=== PATIENT | female | born 1965 | race Caucasian/White ===

== ENCOUNTER 2017-01-09 11:05 | Inpatient (IN) | payer OTHER ==
[2017-01-08 12:49] VITALS: BMI 24.3
--- NOTE | 2017-01-09 08:05 | HP ---
History & Physical Update - History History: No Change - Physical Physical: No Change - Assessment Assessment: No Change - Plan Plan: No Change (This is my first time meeting the patient. Introduced myself and informed patient that I will be assisting Dr. Au throughout the entire procedure. Pre-op: c/o low back pian radiating down RLE to foot)
[~2017-01-09 11:05] MED LIST: ONDANSETRON 4 MG/2 ML VIAL IVPUSH PRN
[2017-01-09] MEDS ORDERED: oxyCODONE HCL 10 MG SUSTAINED ACTING TABLET PO STA (11:28)
[2017-01-09] MEDS ORDERED: LIDOCAINE HCL/PF 2% SDV 5ML VIAL ONE (13:16)
[2017-01-09] MEDS ORDERED: MIDAZOLAM HCL 2 MG/2 ML SINGLE DOSE VIAL ONE (13:16)
[2017-01-09] MEDS ORDERED: PROPOFOL 20 ML ONE ×7 (13:16→16:02)
[2017-01-09] MEDS ORDERED: LIDOCAINE 1%-EPI 1:100,000 30 ML MDV IJ ONE (13:56)
[2017-01-09] MEDS ORDERED: SUCCINYLCHOLINE CHLORIDE 200 MG/10 ML VIAL ONE (14:39)
[2017-01-09] MEDS ORDERED: LIDOCAINE HCL 1%, 10 MG/ML (50 mL VIAL) IJ ONE (15:00)
[2017-01-09] MEDS ORDERED: ceFAZolin SODIUM 1 GM VIAL ONE (15:15)
[2017-01-09] MEDS ORDERED: DEXAMETHASONE SOD PHOSPHATE 4 MG/1 ML VIAL ONE (15:15)
[2017-01-09] MEDS ORDERED: ONDANSETRON 4 MG/2 ML VIAL ONE ×2 (15:15→17:37)
[2017-01-09] MEDS ORDERED: GELATIN SPONGE,ABSORBABLE 1 GM PACKET TP ONE (15:54)
[2017-01-09] MEDS ORDERED: BUPIVACAINE HCL 0.25% 125 MG/50 ML VIAL ONE (15:57)
[2017-01-09] MEDS ORDERED: ONDANSETRON 4 MG/2 ML VIAL IVPUSH PRN (16:02)
[2017-01-09] MEDS ORDERED: BUPIVACAINE HCL/PF 0.25% (2.5MG/ML) 10 ML VIAL IJ ONE (16:52)
--- NOTE | 2017-01-09 16:56 | OP ---
Operative Note - Note: Operative Date: 01/09/17 Pre-Operative Diagnosis: Spondylolithesis, lumbar radiculopathy (right leg-foot) Operation: Transforaminal lumbar interbody fusion/decompression/instrumentation L4-L5 with neuromonitoring Post-Operative Diagnosis: Same as Pre-op Surgeon: Alex Au Housing Inspectors: Tahir Schultz Anesthesiologist/AUGER OPERATOR: Judith Wynn Anesthesia: General Estimated Blood Loss (mls): 30 Fluid Volume Replaced (mls): 1,300 Operative Report Dictated: Yes
[2017-01-09] MEDS ORDERED: ONDANSETRON 4 MG/2 ML VIAL IVPB PRN (16:58)
[2017-01-09] MEDS ORDERED: oxyCODONE HCL 5 MG TABLET PO PRN (16:58)
--- NOTE | 2017-01-09 16:58 | SURG ---
Surgery Certified Nuclear Medicine Technologist Note Certified Nuclear Medicine Technologist: Tahir Schultz PA-C Date of Service: 01/09/17 Diagnosis: Spondylolithesis, lumbar radiculopathy (right leg-->foot) Procedure: CPT Codes: 33302, 24224, 33913 Transforaminal lumbar interbody fusion/decompression/instrumentation L4-L5 with neuromonitoring I was present for the entirety of the operative procedure. For further detail, please refer to operative report. Visit type - Case Type Case Type: Scheduled Admission - New patient This patient is new to me today: Yes Date on this admission: 01/09/17
[2017-01-09] MEDS ORDERED: BIMATOPROST TP SCH (17:00)
[2017-01-09] MEDS ORDERED: LACTATED RINGERS SOLUTION 1,000 ML IV SCH (17:00)
[2017-01-09] MEDS ORDERED: ACETAMINOPHEN 1000 MG/100 ML VIAL (NON FORMULARY) IVPB ONE (17:01)
[2017-01-09] MEDS ORDERED: ACETAMINOPHEN INJECTION 100 ML IVPB ONE (17:11)
[2017-01-09] MEDS ORDERED: diazePAM CARPU-JECT 10 MG/2 ML DISP.SYRIN ONE (17:15)
[2017-01-09] MEDS ORDERED: CEFAZOLIN (PRE-DOCKED) 50 ML IVPB SCH (17:30)
[2017-01-09] MEDS ORDERED: diazePAM CARPU-JECT 10 MG/2 ML DISP.SYRIN IVPUSH ONE (17:50)
[2017-01-09] MEDS: morphine CARPU-JECT 4 MG/1 ML DISP.SYRIN IVPUSH PRN (19:15)
[2017-01-09] MEDS: oxyCODONE HCL 5 MG TABLET PO PRN (22:26)
[2017-01-09] MEDS: ACETAMINOPHEN 325 MG TABLET (FP) PO PRN (23:00)
[2017-01-09] MEDS: CEFAZOLIN (PRE-DOCKED) 50 ML IVPB SCH (23:10)
[2017-01-10] MEDS: morphine CARPU-JECT 4 MG/1 ML DISP.SYRIN IVPUSH PRN (01:37)
[2017-01-10] MEDS ORDERED: CEFTRIAXONE 50 ML ONE (05:55)
[2017-01-10] MEDS: CYCLOBENZAPRINE HCL 10 MG TABLET (FP) PO PRN ×2 (06:02→13:49)
[2017-01-10] MEDS: CEFAZOLIN (PRE-DOCKED) 50 ML IVPB SCH (06:29)
[2017-01-10] MEDS: oxyCODONE HCL 5 MG TABLET PO PRN ×2 (07:31→12:21)
--- NOTE | 2017-01-10 07:49 | DS ---
[id number] walking with the nursing staff. She is voiding without difficulty. Pain mainly over her incision sites. Vital Signs Temperature 97.7 F 01/10/17 06:00 Pulse Rate 53 L 01/10/17 06:00 Respiratory Rate 18 01/10/17 06:00 Blood Pressure 103/50 01/10/17 06:00 O2 Sat by Pulse Oximetry (%) 100 01/10/17 06:00 PHYSICAL EXAM GENERAL: The patient is awake, alert, and fully oriented, in no acute distress. HEAD: Normal with no signs of trauma. NECK: Trachea midline, full range of motion. LUNGS: Breath sounds equal, clear to auscultation bilaterally, no wheezes, no crackles, no accessory muscle use. HEART: Regular rate and rhythm, S1, S2 without murmur, rub or gallop. ABDOMEN: Soft, nontender, nondistended. BACK: Drain removed intact, no evidence of hematoma/ecchymosis. Steri-strips in place. EXTREMITIES: 2+ pulses, warm, well-perfused, no edema. NEUROLOGICAL: Normal speech, 5/5 dorsi/plantar/EHL flexion bilaterally. PSYCH: Normal mood, normal affect. SKIN: Warm, dry, normal turgor, no rashes noted. LABS HOSPITAL COURSE: Date of Admission:01/09/17 Date of Discharge: 01/10/17 The patient was admitted to the Med-Surg Unit after an elective repair of their spondylolisthesis. Now, s/p L4-L5 spinal fusion. The day of surgery, the patient ambulated the hallways with assistance. Narcotic and non-narcotic pain management control was achieved with an oral and IV approach. POD #1, the surgical drain was removed fully intact and without incident. An xray was obtained and confirmed hardware placement at L4-L5, no fractures or dislocations. Rachel-operative IV ABX were administered. DVT prophylaxis was achieved with SCDs and early ambulation. The patient ambulated with Physical Therapy and no services were recommended upon discharge. Narcotic scripts and or muscle relaxants were checked with HIS STUDIO SET UP WORKER prior to escibe. The discharge instructions and an oral pain management plan were reviewed with the patient. All questions answered. Above plan discussed with Dr. Au and agreed. Minutes to complete discharge: 20 <Ama Almonte - Last Filed: 01/10/17 17:18> Physical Exam: SUBJECTIVE: Patient seen and examined OBJECTIVE: Vital Signs Temperature 98.2 F 01/10/17 14:15 Pulse Rate 63 01/10/17 14:15 Respiratory Rate 17 01/10/17 14:15 Blood Pressure 102/54 01/10/17 14:15 O2 Sat by Pulse Oximetry (%) 100 01/10/17 14:15 PHYSICAL EXAM GENERAL: The patient is awake, alert, and fully oriented, in no acute distress. HEAD: Normal with no signs of trauma. EYES: PERRL, extraocular movements intact, sclera anicteric, conjunctiva clear. ENT: Ears normal, nares patent, oropharynx clear without exudates, moist mucous membranes. NECK: Trachea midline, full range of motion, supple. LUNGS: Breath sounds equal, clear to auscultation bilaterally, no wheezes, no crackles, no accessory muscle use. HEART: Regular rate and rhythm, S1, S2 without murmur, rub or gallop. ABDOMEN: Soft, nontender, nondistended, normoactive bowel sounds, no guarding, no rebound, no hepatosplenomegaly, no masses. EXTREMITIES: 2+ pulses, warm, well-perfused, no edema. NEUROLOGICAL: Cranial nerves II through XII grossly intact. Normal speech, gait not observed. PSYCH: Normal mood, normal affect. SKIN: Warm, dry, normal turgor, no rashes or lesions noted. LABS CBC,CMP WBC 12.3 K/mm3 (4.0-10.0) H 01/10/17 08:00 RBC 3.96 M/mm3 (3.60-5.2) 01/10/17 08:00 Hgb 12.2 GM/dl (10.7-15.3) 01/10/17 08:00 Hct 37.2 % (32.4-45.2) 01/10/17 08:00 MCV 94.0 fl (80-96) 01/10/17 08:00 MCHC 32.9 g/dl (32.0-36.0) 01/10/17 08:00 RDW 13.1 % (11.6-15.6) 01/10/17 08:00 Plt Count 206 K/MM3 (134-434) 01/10/17 08:00 MPV 8.5 fl (7.5-11.1) 01/10/17 08:00 Sodium 135 mmol/L (136-145) L 01/10/17 08:00 Potassium 3.8 mmol/L (3.5-5.1) 01/10/17 08:00 Chloride 100 mmol/L (98-107) 01/10/17 08:00 Carbon Dioxide 28 mmol/L (22-28) 01/10/17 08:00 Anion Gap 7 (8-16) L 01/10/17 08:00 BUN 9 mg/dl (7-18) 01/10/17 08:00 Creatinine 0.6 mg/dl (0.6-1.3) 01/10/17 08:00 Random Glucose 115 mg/dl (74-106) H 01/10/17 08:00 Calcium 9.0 mg/dl (8.4-10.2) 01/10/17 08:00 HOSPITAL COURSE: Date of Admission:01/09/17 Date of Discharge: 01/16/17 The patient was admitted to the Med-Surg Unit after an elective repair of their 4-5 spondylolisthesis. Patient had an L4-5 Lumbar Fusion. The day of surgery, the patient ambulated the hallways with assistance. Narcotic and non-narcotic pain management control was achieved with an oral and IV approach. POD #1, the surgical drain was removed fully intact and without incident. An xray was obtained and confirmed hardware placement at L4-5, no fractures or dislocations. Rachel-operative IV ABX were administered. DVT prophylaxis was achieved with SCDs and early ambulation. The patient ambulated with Physical Therapy and no services were recommended upon discharge. Narcotic scripts and or muscle relaxants were checked with [facility] STUDIO SET UP WORKER prior to escibe. The discharge instructions and an oral pain management plan were reviewed with the patient. All questions answered. Above plan discussed with Dr. Au and agreed. Patient seen and examined Agree with Above D/C Planning <Alex Au - Last Filed: 01/16/17 10:03> Visit type - Case Type Case Type: Scheduled Admission - Emergency Emergency Visit: No - New patient This patient is new to me today: Yes Date on this admission: 01/10/17 - Critical Care Critical Care patient: No <Ama Almonte - Last Filed: 01/10/17 17:18>
[2017-01-10 08:58] LABS: MCH 30.9 pg (25.7-33.7); MCHC 32.9 g/dl (32.0-36.0); MEAN PLT VOLUME 8.5 fl (7.5-11.1); PLATELET COUNT 206 K/MM3 (134-434); RDW 13.1 % (11.6-15.6); WHITE BLOOD COUNT 12.3 K/mm3 (4.0-10.0)
[2017-01-10 09:08] LABS: CREATININE 0.6 mg/dl (0.6-1.3)
[2017-01-10] MEDS: ACETAMINOPHEN 325 MG TABLET (FP) PO PRN (13:20)
--- NOTE | 2017-01-10 14:48 | PN ---
Progress Note (short form) - Note Progress Note: ANESTHESIA POST-OP CHECK 52F s/p posterior lumber fusion under general anesthesia POD #1. No acute complaints. Tolerating PO, ambulating, voiding, pain 3/10 and tolerable. Denies N/V, headache. Vital Signs Temperature 97.7 F 01/10/17 06:00 Pulse Rate 53 L 01/10/17 06:00 Respiratory Rate 18 01/10/17 06:00 Blood Pressure 103/50 01/10/17 06:00 O2 Sat by Pulse Oximetry (%) 100 01/10/17 06:00 Active Medications Acetaminophen (Tylenol -) 650 mg PO Q6H PRN PRN Reason: FEVER Last Admin: 01/10/17 13:20 Dose: 650 mg Cyclobenzaprine HCl (Flexeril -) 10 mg PO Q8H PRN PRN Reason: MUSCLE SPASMS Stop: 01/10/17 16:57 Last Admin: 01/10/17 13:49 Dose: 10 mg Non-Formulary Medication (Bimatoprost [Latisse]) 3 ml TP Q72H CHITRA Ondansetron HCl (Zofran Injection) 4 mg IVPB Q6H PRN PRN Reason: NAUSEA AND/OR VOMITING Oxycodone HCl (Roxicodone -) 10 mg PO Q4H PRN PRN Reason: PAIN LEVEL 6-10 Last Admin: 01/10/17 12:21 Dose: 10 mg Oxycodone HCl (Roxicodone -) 5 mg PO Q4H PRN PRN Reason: PAIN Gen: awake alert No apparent anesthesia complications. Pain well controlled. Continue managment as per primary team.
[2017-01-10 15:21] VITALS: BP 102/54; PULSE 63; TEMP 98.2
--- NOTE | 2017-01-10 16:27 | OP ---
DATE OF OPERATION: 01/09/2017 PREOPERATIVE DIAGNOSES: 1. Spondylolisthesis, L4-5. 2. Spinal stenosis, L4-5. POSTOPERATIVE DIAGNOSES: 1. Spondylolisthesis, L4-5. 2. Spinal stenosis, L4-5. PROCEDURE PERFORMED: 1. Transforaminal lumbar interbody fusion, L4-5. 2. Placement of instrumentation, L4-5. 3. Placement of prosthetic cage. 4. Hemilaminectomy. SURGEON: Alex Au MD CENTRAL SERVICES TECH: AMARILYS Freeman ESTIMATED BLOOD LOSS: 50 mL. INTRAVENOUS FLUIDS: Per Anesthesia. ANESTHESIA: General. COMPLICATIONS: None. DISPOSITION: Patient brought to the PACU in stable condition. INDICATION FOR SURGERY: The patient is a 52-year-old female who has been suffering from pain from her back down the leg. X-rays and MRI were completed which showed that she had spondylolisthesis at L4-5 contributing to stenosis. She had gone through an exhaustive course of treatment protocols which included medications, physical therapy, as well as injection. Unfortunately, her pain persisted despite all this. At this point, risks, benefits, and alternatives were discussed and the patient consented to surgery. DESCRIPTION OF PROCEDURE: The patient was brought to the operating room by the anesthesia staff. After appropriate patient identification was performed, general anesthesia was given. Neuromonitoring leads were attached. She was placed prone onto the OR table with all areas of bony prominences well padded. At this time , the C-arm was brought in. The L4-L5 pedicles were marked off. Lidocaine with epinephrine 10 mL was injected into her back. At this time, her back was prepped and draped in sterile manner. At this point, a timeout was completed. Incisions were made bilaterally over the L4-L5 pedicles. Dissection was carried down to the fascia. The fascia was split open at this time. The C-arm was brought in. Under C-arm guidance, trocars are advanced into the L4-L5 pedicles. Through the trocars, wire was inserted, tap was performed and screws inserted. On the right-hand side, retractor blades were set up to expose the L4-5 facet joint; it was removed with a bur. A hemilaminectomy was completed at this time. The disk was entered. Using a series of pituitaries, Kerrisons and curettes, a diskectomy was completed. A bone graft was placed in. The cage filled with bone graft was placed in. Screw heads were placed over the screws. A ara was measured and placed on. Caps were placed on. Compression and final tightening were applied. On the left-hand side, the ara was measured and placed on. Caps were placed on. Compression and final tightening were applied. All extra instrumentation was removed at this time. AP and lateral x-rays confirmed instrumentation to be in good position. The fascia was closed with a No. 1 Vicryl suture. A drain was placed. The subcutaneous tissue was closed with a 2-0 Vicryl suture. Skin was closed with 3 -0 Monocryl suture. Dermabond was applied. Steri-Strips were applied. A sterile dressing was applied. Patient was placed supine on the OR bed, extubated in the OR and brought to the PACU in stable condition. ALEX AU M.D. [id number] MTDD
== END 2017-01-10 16:20 | disposition home or self-care (01) | DRG 460 ==
LOC: FM/S 11:05
PROVIDERS: ADMIT Orthopaedic Surgery Orthopaedic Surgery of the Spine; ATTEND Orthopaedic Surgery Orthopaedic Surgery of the Spine
PROC: 0SB20ZZ Excision of Lumbar Vertebral Disc, Open Approach (ICD-10-PCS; 2017-01-09)
PROC: 0SG00AJ Fusion of Lumbar Vertebral Joint with Interbody Fusion Device, Posterior Approach, Anterior Column, Open Approach (ICD-10-PCS; principal; 2017-01-09 14:30)
DX: M43.16 Spondylolisthesis, lumbar region (principal); M48.06 Spinal stenosis, lumbar region; M54.16 Radiculopathy, lumbar region
CPT/HCPCS: 36415; 72100-TC; 76001-TC; 80048; 84703; 85027; 94010; 94760; 97116-GP; 97161-GP